=== PATIENT | female | born 1960 | race Caucasian/White ===

== ENCOUNTER 2020-07-24 22:43 | Emergency (ER) | payer BC ==
[2020-07-24] MEDS: Lidocaine 1% with EPINEPHrine 1:100,000 20 ML MDV INFILT STA (22:56)
[2020-07-25] MEDS: Cephalexin 500 MG Cap PO ONE (00:03)
--- NOTE | 2020-07-25 00:04 | EDM.PDOC ---
ED HPI GENERAL MEDICAL PROBLEM - General Chief Complaint: Skin Complaint Stated Complaint: LACERATION TO FORHEAD Time Seen by Provider: 07/24/20 22:43 Source of Information: Reports: Patient History Limitations: Reports: No Limitations - History of Present Illness INITIAL COMMENTS - FREE TEXT/NARRATIVE: Patient comes emergency department today after a fall striking her forehead at home. This patient was blanca some tomato juice when she was ambulating across the kitchen she tripped and fell striking her forehead on the corner of a doorway. She is unsure if she lost consciousness but her who is right there is stated that she did not. This happened about an hour prior to arrival they have been attempting to control the bleeding prior to arrival. She has no head neck or back pain. She has no visual disturbances. She has no paresthesias of her upper or lower extremities. No change in the functionality of her upper or lower extremities. She is unsure of when her last tetanus shot was. Is not nauseated. She has no diplopia. The rest of her head is nontender or concerning to her. Forehead Pain Score (Numeric/FACES): 8 - Related Data Allergies Allergy/AdvReac Type Severity Reaction Status Date / Time Sulfa (Sulfonamide Allergy Rash Verified 07/24/20 22:54 Antibiotics) Home Meds: Home Meds Multivitamin [Multi Vitamin Daily] 1 tab PO DAILY 05/16/14 [History] Loratadine [Claritin] 1 tab PO DAILY PRN 06/27/14 [History] cephALEXin [Cephalexin] 500 mg PO QID #20 tablet 07/24/20 [Rx] Past Medical History - Past Health History Medical/Surgical History: Denies Medical/Surgical History Social & Family History - Tobacco Use Smoking Status *Q: Never Smoker ED ROS GENERAL - Review of Systems Review Of Systems: Comprehensive ROS is negative, except as noted in HPI. ED EXAM, SKIN/RASH Exam: See Below Exam Limited By: No Limitations General Appearance: Alert, WD/WN, No Apparent Distress Eye Exam: Bilateral Eye: EOMI, Normal Inspection, PERRL Ears: Normal External Exam, Normal TMs Nose: Normal Inspection, Normal Mucosa Throat/Mouth: Normal Inspection, Normal Lips, Normal Teeth, Normal Oropharynx, Normal Voice Head: Normocephalic. No: Atraumatic (There is a approximate 4.5 cm full- thickness laceration in the very mid aspect of the forehead vertically that extends down to the skull. No foreign material debris. There is no bony deformity crepitus subcutaneous emphysema. This is primarily on the very superior aspect of the forehead) Neck: Normal Inspection, Supple, Non-Tender, Full Range of Motion. No: Lymphadenopathy (L), Lymphadenopathy (R), Tender Lateral, Tender Midline Respiratory/Chest: No Respiratory Distress, Lungs Clear Cardiovascular: Normal Peripheral Pulses, Regular Rate, Rhythm GI/Abdominal: Normal Bowel Sounds, Soft (Female) Exam: Deferred Rectal (Female) Exam: Deferred Back Exam: Normal Inspection, Full Range of Motion Extremities: Normal Inspection, Normal Range of Motion, Normal Capillary Refill Neurological: Alert, Oriented, CN II-XII Intact, Normal Cognition, Normal Gait, Normal Reflexes, No Motor/Sensory Deficits Psychiatric: Normal Affect, Normal Mood Skin: Warm, Dry, Intact, Normal Color, No Rash ED SKIN PROCEDURES - Laceration/Wound Repair Middle Forehead Appearance: Subcutaneous, Irregular, Clean Distal NVT: Neuro & Vascular Intact Anesthetic Type: Local Local Anesthesia - Lidocaine (Xylocaine): 1% with EPI Local Anesthetic Volume: Other (8) Skin Prep: Chlorhexidine (Hibiciens), Saline Saline Irrigation (cc's): 50 Exploration/Debridement/Repair: Wound Explored, In a Bloodless Field, Explored to Base, Multiple Flaps Aligned Closed with: Sutures Lac/Wound length In cm: 4.5 Suture Size: 6-0 Suture Type: Nylon, Running Suture Size: 3-0 Repaired with: Vicryl Sterile Dressing Applied: Provider Tetanus Status Addressed: Yes Progress/Comments: The wound was cleansed and cleaned. It does extend to the skull minimally. The subcutaneous tissues were approximated quite well with Vicryl and 6-0 running with 2 interrupted sutures as well. Course - Vital Signs Last Recorded V/S: Last Vital Signs Temp 97.6 F 07/24/20 22:45 Pulse 77 07/24/20 22:45 Resp 16 07/24/20 22:45 BP 127/82 07/24/20 22:45 Pulse Ox 95 07/24/20 22:45 - Orders/Labs/Meds Meds: Medications Discontinued Medications Generic Name Dose Route Start Last Admin Trade Name Freq PRN Reason Stop Dose Admin Cephalexin 500 mg 07/24/20 23:54 07/25/20 00:03 Keflex PO 07/24/20 23:55 500 mg ONETIME ONE Administration Lidocaine/Epinephrine 20 ml 07/24/20 22:54 07/24/20 22:56 Xylocaine 1% With Epinephrine 1:100,000 INFILT 07/24/20 22:55 20 ml ONETIME STA Administration - Re-Assessments/Exams Free Text/Narrative Re-Assessment/Exam: Due to the depth of the laceration I will place the patient on prophylactic antibiotic. I did send her home with a pressure dressing to ensure hemostasis continues so that it doesn't add tension to the laceration. Discharge instructions as below were explained to the patient. She is comfortable with this plan and her questions answered. Departure - Departure Time of Disposition: 23:54 Disposition: Home, Self-Care 01 Clinical Impression: Forehead laceration Qualifiers: Encounter type: initial encounter Qualified Code(s): S01.81XA - Laceration without foreign body of other part of head, initial encounter - Discharge Information Prescriptions: cephALEXin [Cephalexin] 500 mg PO QID #20 tablet Instructions: Sutured Wound Care, [id number] Referrals: PCP,None [Primary Care Provider] - Forms: ED Department Discharge Additional Instructions: Cleanse the wound twice daily with soap and water. Bacitracin and bandage until healed. Sutures out in 5 days. Watch for signs of infection. Cephalexin 1 capsule 4 times a day for the next 5 days for prophylaxis due to the depth and the region of the laceration. If a crust develops use hydrogen peroxide with water half and half to remove the scab and then bacitracin and bandage. Return to the ED if new or worsening symptoms. Follow up with PCP in the next 5 days for suture removal. Sepsis Event Note (ED) - Evaluation Sepsis Screening Result: No Definite Risk
== END 2020-07-25 00:05 | disposition home or self-care (01) ==
LOC: VM.ED 22:43
DX: S01.81XA Laceration without foreign body of other part of head, initial encounter (principal); Z88.2 Allergy status to sulfonamides; W22.8XXA Striking against or struck by other objects, initial encounter; Y92.009 Unspecified place in unspecified non-institutional (private) residence as the place of occurrence of the external cause
CPT/HCPCS: 12052; 99282-25; A9270-GY

== ENCOUNTER 2021-01-02 07:09 | Day surgery (SDC) | payer BC ==
[~2021-01-02 07:09] MED LIST: Lactated Ringers 1,000 ML IV SCH
[2021-01-02] MEDS ORDERED: fentaNYL 100 MCG/2 ML SDV ONE (08:15)
[2021-01-02] MEDS ORDERED: Propofol 200 MG/20 ML SDV ONE ×2 (08:15→08:30)
--- NOTE | 2021-01-02 14:46 | OR ---
DATE OF SURGERY: 01/02/2021. REFERRING PROVIDER: Tahira Owen MD PRE-OPERATIVE DIAGNOSIS: Positive family history of colon cancer in mother who was in her 60s. The patient's last colonoscopy was in 2014. POST-OPERATIVE DIAGNOSES: 1. Mild hemorrhoids, not acutely inflamed. 2. Otherwise normal-appearing colon and normal-appearing distal ileum. PROCEDURE: Colonoscopy. SURGEON: Nolberto Gonzales M.D. ANESTHESIA: Monitored anesthesia care. BOWEL PREP: Good. Elise is a 60-year-old female who was brought to the endoscopy suite after discussing risks and benefits of the procedure. Informed consent was obtained for conscious sedation and colonoscopy with or without biopsy and/or polypectomy. We also discussed possibility of missed lesions. Pre-procedure exam was unremarkable. IV, oxygen, and monitors were placed. The patient was placed in the left lateral decubitus position. Sedation was administered and a digital rectal exam was performed and was remarkable for some mild hemorrhoids, not acutely inflamed. Colonoscope was passed into the rectum and slowly advanced all the way to the cecum. Cecum was viewed and photographed. Ileocecal valve was intubated and distal ileum was normal in appearance. The colonoscope was slowly withdrawn and the mucosa was closed observed in a direct circumferential manner. The ascending colon was unremarkable. The transverse colon was unremarkable. The descending colon was unremarkable. The sigmoid colon was unremarkable. Retroflexion was performed and rectal mucosa did reveal some mild internal hemorrhoids, not acutely inflamed. Scope was removed. The patient tolerated the procedure well. The patient was monitored until that baseline status. Discharge instructions were reviewed and the patient was discharged in good condition. COMPLICATIONS: None. TOTAL TIME: 18 minutes. ESTIMATED BLOOD LOSS: None. RECOMMENDATIONS/FOLLOW-UP: Given the positive family history of colon cancer in mother, I would recommend repeating colonoscopy again in 5 years. I would like to kindly thank Dr. Owen for this referral. DMB: 01/02/2021 09:01:18 MODL: 01/02/2021 14:07:38 /[id number]
== END 2021-01-02 09:50 | disposition home or self-care (01) ==
LOC: VM.SDS 07:09
PROVIDERS: ATTEND Family Medicine
DX: Z12.11 Encounter for screening for malignant neoplasm of colon (principal); K64.8 Other hemorrhoids; G47.00 Insomnia, unspecified; Z88.2 Allergy status to sulfonamides; Z01.812 Encounter for preprocedural laboratory examination; Z20.822 Contact with and (suspected) exposure to COVID-19; Z98.890 Other specified postprocedural states
CPT/HCPCS: 00812; J2704; J3010; J7120; U0002